=== PATIENT | female | born 1990 | race Caucasian/White ===

== ENCOUNTER → 2016-09-09 | Outpatient (CLI) | payer MEDICAID | END | disposition disaster alternative care site (69) | LOC: GRAD 09-05 10:00 | DX: E04.2 Nontoxic multinodular goiter (principal) ==

== ENCOUNTER → 2016-09-24 | Outpatient (CLI) | payer MEDICAID | END | disposition disaster alternative care site (69) | LOC: GPOC 09-11 09:00 → GRAD 09-12 14:00 → GPOC 09-22 15:00 → GRAD 12:53 → GPOC 13:30 | PROC: 0GBG3ZX Excision of Left Thyroid Gland Lobe, Percutaneous Approach, Diagnostic (ICD-10-PCS; principal; 2016-09-24) | PROC: 0GBH3ZX Excision of Right Thyroid Gland Lobe, Percutaneous Approach, Diagnostic (ICD-10-PCS; 2016-09-24) | DX: E04.2 Nontoxic multinodular goiter (principal) ==